=== PATIENT | female | born 1980 | race Two or more races ===

== ENCOUNTER 2020-04-21 14:45 | Outpatient (CLI) | payer OTHER | END 2020-04-21 18:00 | disposition home or self-care (01) | LOC: LAB 14:45 | PROVIDERS: ATTEND Obstetrics & Gynecology | DX: Z34.01 Encounter for supervision of normal first pregnancy, first trimester (principal) ==

== ENCOUNTER 2020-04-24 10:44 | Outpatient (CLI) | payer OTHER | END 2020-04-24 10:56 | disposition home or self-care (01) | LOC: LAB 10:44 | PROVIDERS: ATTEND Obstetrics & Gynecology | DX: Z34.01 Encounter for supervision of normal first pregnancy, first trimester (principal); D58.8 Other specified hereditary hemolytic anemias ==

== ENCOUNTER 2020-07-09 18:41 | Emergency (ER) | payer OTHER ==
[~2020-07-09] VITALS: Ht 165.1 cm; Wt 61.2 kg
[2020-07-09] MEDS ORDERED: PRENATALES (19:03)
== END 2020-07-09 23:18 ==
LOC: ER 18:41
DX: O20.0 Threatened abortion (principal); Z3A.01 Less than 8 weeks gestation of pregnancy

== ENCOUNTER → 2020-10-25 | Outpatient (CLI) | payer OTHER ==
[~2020-10-25] MED LIST: PRENATALES
== END | disposition home or self-care (01) ==
LOC: PRENATAL 10:00
PROVIDERS: ATTEND Obstetrics & Gynecology Maternal & Fetal Medicine
DX: O35.0XX1 Maternal care for (suspected) central nervous system malformation in fetus, fetus 1 (principal); O35.3XX1 Maternal care for (suspected) damage to fetus from viral disease in mother, fetus 1; O98.512 Other viral diseases complicating pregnancy, second trimester; O09.512 Supervision of elderly primigravida, second trimester; Z36.89 Encounter for other specified antenatal screening; Z3A.22 22 weeks gestation of pregnancy

== ENCOUNTER 2021-02-15 13:45 | Inpatient (IN) | payer OTHER ==
[~2021-02-15] VITALS: Ht 165.1 cm; Wt 73.0 kg
[2021-02-23] MEDS ORDERED: ATABEX DHA 200200 MG (00:22)
[2021-02-23] MEDS ORDERED: VITAMIN D-40010 MCG (00:23)
[2021-02-23] MEDS ORDERED: IRON236 MG (00:24)
[2021-02-26] MEDS ORDERED: IBUPROFEN800 MG PO (13:03)
[2021-02-26] MEDS ORDERED: OXYC1TAB9 PO (13:03)
== END 2021-02-26 14:14 | disposition home or self-care (01) | DRG 788 ==
LOC: LDR 02-22 23:02 → SURG-SUITE 02-23 18:50 → OB/GYN 03-02 13:45
PROVIDERS: ADMIT Obstetrics & Gynecology; ATTEND Obstetrics & Gynecology
PROC: 10907ZC Drainage of Amniotic Fluid, Therapeutic from Products of Conception, Via Natural or Artificial Opening (ICD-10-PCS; 2021-02-23)
PROC: 3E0P7VZ Introduction of Hormone into Female Reproductive, Via Natural or Artificial Opening (ICD-10-PCS; 2021-02-23)
PROC: 4A1HXFZ Monitoring of Products of Conception, Cardiac Rhythm, External Approach (ICD-10-PCS; 2021-02-23)
PROC: 10D00Z1 Extraction of Products of Conception, Low, Open Approach (ICD-10-PCS; principal; 2021-02-23 18:30)
DX: O62.1 Secondary uterine inertia (principal); O82 Encounter for cesarean delivery without indication; O36.8130 Decreased fetal movements, third trimester, not applicable or unspecified; Z53.29 Procedure and treatment not carried out because of patient's decision for other reasons; Z37.0 Single live birth; Z3A.39 39 weeks gestation of pregnancy

== ENCOUNTER 2023-12-07 10:32 | Emergency (ER) | payer OTHER ==
[~2023-12-07] VITALS: Ht 165.1 cm; Wt 61.2 kg
[~2023-12-07 10:32] MED LIST changes: +ATABEX DHA 200200 MG; +IBUPROFEN800 MG PO; +IRON236 MG; +OXYC1TAB9 PO; +VITAMIN D-40010 MCG
[2023-12-07 12:33] LABS: HEMATOCRIT 36.9 % (36.0-45.00); HEMOGLOBIN 12.3 g/dL (12.0-15.00); MEAN CELL VOLUME 92.4 fL (80.00-100.00); MEAN CORPUSCULAR HEMOGLOBIN 30.9 pg (27.00-32.0); MEAN CORPUSCULAR HGB CONC 33.5 g/dl (32.0-36.0); PLATELET COUNT 314 K/uL (150-450); RED BLOOD COUNT 3.99 M/uL (4.00-6.00); RED CELL DISTRIBUTION WIDTH 13.8 % (11.5-14.5)
[2023-12-07 12:49] LABS: URINE APPEARANCE Clear; URINE BILIRRUBIN Negative (NEGATIVE); URINE BLOOD Large; URINE COLOR Yellow; URINE GLUCOSE Negative (NEGATIVE); URINE KETONE Negative (NEGATIVE); URINE LEUKOCYTE Negative; URINE NITRATE Negative; URINE PROTEIN Negative (NEGATIVE); URINE UROBILINOGEN 0.2 E.U./dl
[2023-12-07 12:52] LABS: URINE BACTERIA 152.4 uL (0.0-1933); URINE EPITHELIAL CELLS 13.8 uL (0.0-38.8); URINE RBC 10.5 uL (0.0-20.8); URINE WBC 4.3 uL (0.0-23.2)
[2023-12-07 13:31] LABS: CREATININE SERUM 0.57 mg/dL (0.55-1.02); GFR 116.89; POTASSIUM 5.02 mEq/L (3.5-5.1)
== END 2023-12-07 14:58 | disposition home or self-care (01) ==
LOC: ER 10:34
PROVIDERS: General Practice
DX: O20.8 Other hemorrhage in early pregnancy (principal); Z3A.01 Less than 8 weeks gestation of pregnancy

== ENCOUNTER 2024-03-11 09:23 | Outpatient (CLI) | payer OTHER | END 2024-03-11 09:24 | disposition home or self-care (01) | LOC: PRENATAL 09:23 | PROVIDERS: ATTEND Obstetrics & Gynecology Maternal & Fetal Medicine | DX: O44.00 Complete placenta previa NOS or without hemorrhage, unspecified trimester (principal); O09.529 Supervision of elderly multigravida, unspecified trimester; O34.219 Maternal care for unspecified type scar from previous cesarean delivery; Z3A.20 20 weeks gestation of pregnancy ==

== ENCOUNTER 2024-06-08 10:29 | Outpatient (CLI) | payer OTHER | END 2024-06-08 10:33 | disposition home or self-care (01) | LOC: PRENATAL 10:29 | PROVIDERS: ATTEND Obstetrics & Gynecology Maternal & Fetal Medicine | DX: O26.849 Uterine size-date discrepancy, unspecified trimester (principal); O36.8199 Decreased fetal movements, unspecified trimester, other fetus; O09.529 Supervision of elderly multigravida, unspecified trimester; O34.219 Maternal care for unspecified type scar from previous cesarean delivery; Z3A.32 32 weeks gestation of pregnancy ==

== ENCOUNTER 2024-07-13 08:00 | Inpatient (IN) | payer OTHER ==
[~2024-07-13] VITALS: Ht 165.1 cm; Wt 3.2 kg
[2024-07-13 09:28] LABS: HEMATOCRIT 35.7 % (36.0-45.00); MEAN CELL VOLUME 93.9 fL (80.00-100.00); MEAN CORPUSCULAR HEMOGLOBIN 31.6 pg (27.00-32.0); MEAN CORPUSCULAR HGB CONC 33.6 g/dl (32.0-36.0); PLATELET COUNT 252 K/uL (150-450); RED CELL DISTRIBUTION WIDTH 13.3 % (11.5-14.5)
[2024-07-13 09:41] LABS: PH,URINE 5.5 (5.0-8.0); URINE APPEARANCE Cloudy; URINE BILIRRUBIN Negative (NEGATIVE); URINE BLOOD Negative; URINE COLOR Yellow; URINE GLUCOSE Negative (NEGATIVE); URINE KETONE Negative (NEGATIVE); URINE LEUKOCYTE Small; URINE NITRATE Negative; URINE PROTEIN Negative (NEGATIVE); URINE UROBILINOGEN 0.2 E.U./dl
[2024-07-13 09:45] LABS: URINE BACTERIA 4894.7 uL (0.0-1933); URINE EPITHELIAL CELLS 166.7 uL (0.0-38.8); URINE RBC 2.5 uL (0.0-20.8); URINE WBC 114.1 uL (0.0-23.2)
[2024-07-13 10:01] LABS: INR < 0.93; PARTIAL THROMBOPLASTIN TIME 25.2 SECONDS (22.0-34.0); PROTHROMBIN TIME 10.1 SECONDS (9.0-11.5)
[2024-07-13 10:28] LABS: URINE CAST 0.73 uL (0.0-1.40)
[2024-07-13 10:53] LABS: ALBUMIN 2.9 gm/dL (3.4-5.0); BILIRUBIN TOTAL 0.34 mg/dL (0.3-1.2); CALCIUM 9.2 mg/dL (8.5-10.1); CREATININE SERUM 0.44 mg/dL (0.55-1.02); GFR 157.58; GLOBULINA 3.9 G/DL (2.4-3.5); POTASSIUM 4.65 mEq/L (3.5-5.1); TOTAL PROTEIN 6.8 gm/dL (6.4-8.2)
[2024-07-16 06:05] VITALS: BP 106/75
[2024-07-16] MEDS ORDERED: CEFAZOLIN SODIUM 1,000 MG VIAL ONE (06:42)
[2024-07-16] MEDS ORDERED: OXYTOCIN 10 UNITS/ML VIAL ONE (07:06)
[2024-07-16] MEDS ORDERED: ERYTHROMYCIN BASE OPHT 1GM EACH TUBE OP ONE (07:07)
[2024-07-16] MEDS ORDERED: MORPHINE SULFATE 4 MG/ML CARTRIDGE IV PRN (09:30)
[2024-07-16] MEDS ORDERED: RINGERS SOLUTION,LACTATED 1,000 ML IV SCH (09:30)
[2024-07-16] MEDS ORDERED: MORPHINE SULFATE 4 MG/ML VIAL IV ONE ×2 (09:50→10:20)
[2024-07-16 13:16] VITALS: BP 119/71
[2024-07-16] MEDS ORDERED: CEFAZOLIN SODIUM 1,000 MG VIAL IV SCH (14:00)
[2024-07-16 18:26] VITALS: BP 116/70
[2024-07-17] VITALS: BP 117/80
[2024-07-17 01:46] LABS: HEMATOCRIT 30.1 % (36.0-45.00); HEMOGLOBIN 10.1 g/dL (12.0-15.00); MEAN CELL VOLUME 93.1 fL (80.00-100.00); MEAN CORPUSCULAR HEMOGLOBIN 31.2 pg (27.00-32.0); MEAN CORPUSCULAR HGB CONC 33.5 g/dl (32.0-36.0); PLATELET COUNT 187 K/uL (150-450); RED BLOOD COUNT 3.23 M/uL (4.00-6.00); RED CELL DISTRIBUTION WIDTH 13.1 % (11.5-14.5)
[2024-07-17] MEDS ORDERED: ACETAMINOPHEN WITH CODEINE 1 UDTAB TABLET PO SCH (09:00)
[2024-07-17] MEDS ORDERED: KETOROLAC TROMETHAMINE 60 MG VIAL IM STA ×2 (14:16→14:34)
[2024-07-17] MEDS ORDERED: CHLORHEXIDINE GLUCONATE 120 ML BOTTLE TP SCH (14:30)
[2024-07-17] MEDS ORDERED: OXYTOCIN 1,000 ML IV SCH (14:30)
[2024-07-17] MEDS ORDERED: RINGERS SOLUTION,LACTATED 1,000 ML IV SCH (14:30)
[2024-07-17 16:00] VITALS: BP 118/78
[2024-07-17 20:00] VITALS: BP 123/84
[2024-07-17 23:54] VITALS: BP 132/85
[2024-07-18 05:00] VITALS: BP 116/75
[2024-07-18 08:00] VITALS: BP 102/69
[2024-07-18 12:51] VITALS: BP 118/81
[2024-07-18 16:21] VITALS: BP 130/80
[2024-07-18 20:30] VITALS: BP 114/78; O2SAT 97
[2024-07-19 00:11] VITALS: BP 114/74
[2024-07-19 04:01] VITALS: BP 113/76
[2024-07-19] MEDS ORDERED: IBUPROFEN800 MG PO (07:57)
[2024-07-19 08:00] VITALS: BP 107/70
== END 2024-07-19 12:48 | disposition home or self-care (01) | DRG 788 ==
LOC: O/R 07-16 05:41 → OB/GYN 07-16 07:00
PROVIDERS: ADMIT Specialist; ATTEND Specialist
PROC: 4A1HXCZ Monitoring of Products of Conception, Cardiac Rate, External Approach (ICD-10-PCS; 2024-07-16)
PROC: 10D00Z1 Extraction of Products of Conception, Low, Open Approach (ICD-10-PCS; principal; 2024-07-16 07:00)
DX: O34.211 Maternal care for low transverse scar from previous cesarean delivery (principal); Z3A.38 38 weeks gestation of pregnancy; Z37.0 Single live birth